=== PATIENT | female | born 1965 | race Two or more races ===

== ENCOUNTER 2018-07-11 23:38 | Emergency (ER) | payer BC, MEDICAID ==
[~2018-07-11] VITALS: Ht 154.9 cm; Wt 56.7 kg
--- NOTE | 2018-07-11 23:38 | NUR ---
"CHRONIC N/V/ABD PAIN WORSE TODAY" PT IS ALERT AND ORIENTED BUT BRAZILIAN SPEAKING. VSS NO ACUTE DISTRESS AT THIS TIME. SKIN IS WARM AND INTACT. BREATHING RATE WNL WITH ADEQUATE CHEST RISE/FALL. WILL CONTINUE TO MONITOR FOR ANY CHANGES DURING THE SHIFT.
--- NOTE | 2018-07-11 23:39 | NUR ---
ER MD VITALE AT BEDSIDE
--- NOTE | 2018-07-11 23:42 | NUR ---
CALLED; INFORMED "PT IN RESTROOM"
--- NOTE | 2018-07-11 23:45 | NUR ---
CALLED FOR TRIAGE; PT STILL IN RESTROOM
--- NOTE | 2018-07-12 00:20 | NUR ---
BLOOD TAKEN TO LAB BY MEDICAL TECHNOLOGIST CHIEF
[2018-07-12 00:26] LABS: BASOPHILS % (AUTO) 0.8 % (0.0-2.0); EOSINOPHILS % (AUTO) 1.2 % (0.0-6.0); HEMATOCRIT 42 % (33-45); HEMOGLOBIN 14.1 g/dL (11.5-14.8); LYMPHOCYTES # (AUTO) 1.5 /CMM (0.8-4.8); LYMPHOCYTES % (AUTO) 27.3 % (20.0-44.0); MEAN CORPUSCULAR HEMOGLOBIN 37 PG (26.0-33.0); MEAN CORPUSCULAR HGB CONC 33 g/dl (31.0-36.0); MEAN CORPUSCULAR VOLUME 112 fL (82-100); MONOCYTES # (AUTO) 0.6 /CMM (0.1-1.30); MONOCYTES % (AUTO) 10.9 % (2.0-12.0); NEUTROPHILS # (AUTO) 3.2 /CMM (1.8-8.9); NEUTROPHILS % (AUTO) 59.8 % (43.0-81.0); PLATELET COUNT (AUTO) 77 /CMM (150-450); RDW COEFFICIENT OF VARIATION 14.4 (11.5-15.0); RED BLOOD CELL COUNT(AUTO) 3.79 MIL/uL (4.0-5.2); WHITE BLOOD COUNT (AUTO) 5.4 K/uL (4.3-11.0)
--- NOTE | 2018-07-12 00:26 | NUR ---
MACHINE BUNCH MAKER AT BEDSIDE
[2018-07-12 00:41] LABS: CALCIUM, SERUM 8.7 mg/dL (8.5-10.1); CREATININE 0.7 mg/dL (0.6-1.3); POTASSIUM 4.2 mmol/L (3.5-5.1)
[2018-07-12 00:46] LABS: BILIRUBIN,DIRECT 2.9 mg/dL (0.0-0.2); BILIRUBIN,TOTAL 4.2 mg/dL (0.2-1.0); TOTAL PROTEIN, SERUM 7.2 g/dL (6.4-8.2)
[2018-07-12 01:08] LABS: EOSINOPHILS % (MANUAL) 1 % (0-4); LYMPHOCYTES % (MANUAL) 27 % (16-48); MONOCYTES % (MANUAL) 8 % (0-11.0); NEUTROPHILS % (MANUAL) 64 (42-76)
[2018-07-12 01:26] VITALS: BP 145/91
== END 2018-07-12 01:26 | disposition home or self-care (01) ==
LOC: ER 23:39
DX: R25.2 Cramp and spasm (principal); G89.29 Other chronic pain; R10.9 Unspecified abdominal pain; B19.20 Unspecified viral hepatitis C without hepatic coma; D69.6 Thrombocytopenia, unspecified
CPT/HCPCS: 36415; 71045; 73030; 80048; 80076; 85025; 99285; A4606; Z7610

== ENCOUNTER 2022-09-01 01:40 | Emergency (ER) | payer MEDICARE, BC ==
[~2022-09-01] VITALS: Ht 162.6 cm; Wt 63.5 kg
[2022-09-01] MEDS ORDERED: MORPHINE SULFATE INJ 2 MG/ML DISP.SYRIN IV ONE (02:30)
[2022-09-01] MEDS ORDERED: ONDANSETRON HCL/PF 4 MG/2 ML VIAL IVP ONE (02:30)
[2022-09-01] MEDS ORDERED: IV NS 0.9% 500 ML BAG IV ONE (02:30)
--- NOTE | 2022-09-01 02:30 | NUR ---
TO ER BED 17. BIBDAUGHTER C/O EPIGASTRIC 710 PAIN X1 DAY. +NAUSEA/BLOOD TINGED VOMIT. HX CIRRHOSIS. PT IS ALERT AND ORIENTED. RR EVEN AND NON LABORED. CONNECTED TO MONITOR
[2022-09-01] MEDS ORDERED: MORPHINE SULFATE INJ 2 MG/ML DISP.SYRIN ONE (02:32)
[2022-09-01] MEDS ORDERED: ONDANSETRON HCL/PF 4 MG/2 ML VIAL ONE (02:32)
--- NOTE | 2022-09-01 02:47 | NUR ---
IV LINE ESTABLISHED, LHAND 20G
[2022-09-01 02:48] LABS: BASOPHILS % (AUTO) 0.8 % (0.0-2.0); EOSINOPHILS % (AUTO) 1.3 % (0.0-6.0); HEMATOCRIT 41 % (33-45); HEMOGLOBIN 13.7 g/dL (11.5-14.8); LYMPHOCYTES # (AUTO) 1.1 K/uL (0.8-4.8); LYMPHOCYTES % (AUTO) 25.5 % (20.0-44.0); MEAN CORPUSCULAR HGB CONC 33 g/dl (31.0-36.0); MEAN CORPUSCULAR VOLUME 102 fL (82-100); MONOCYTES # (AUTO) 0.5 K/uL (0.1-1.30); MONOCYTES % (AUTO) 11.2 % (2.0-12.0); NEUTROPHILS # (AUTO) 2.6 K/uL (1.8-8.9); NEUTROPHILS % (AUTO) 61.2 % (43.0-81.0); PLATELET COUNT (AUTO) 57 K/uL (150-450); RED BLOOD CELL COUNT(AUTO) 4.01 MIL/uL (4.0-5.2); WHITE BLOOD COUNT (AUTO) 4.3 K/uL (4.3-11.0)
--- NOTE | 2022-09-01 02:48 | NUR ---
BLOOD COLLECTED AND SENT TO LAB
--- NOTE | 2022-09-01 02:50 | NUR ---
PT UNABLE TO PROVIDE URINE AT THIS TIME
[2022-09-01 02:56] LABS: CALCIUM, SERUM 8.7 mg/dL (8.5-10.1); CARBON DIOXIDE 27 mmol/L (21-32); CHLORIDE 107 mmol/L (98-107); CREATININE 0.7 mg/dL (0.6-1.3); GLUCOSE 110 mg/dL (74-106); SODIUM SERUM 139 mmol/L (136-145); UREA NITROGEN, BLOOD 17 mg/dL (7-18)
[2022-09-01 03:02] LABS: ALANINE AMINOTRANSFERASE 169 U/L (12-78); ALBUMIN 2.7 g/dL (3.4-5.0); ALKALINE PHOSPHATASE 92 U/L (46-116); ASPARTATE AMINOTRANSFERASE 152 U/L (15-37); BILIRUBIN,DIRECT 1.2 mg/dL (0.0-0.2); BILIRUBIN,TOTAL 2.2 mg/dL (0.2-1.0); LIPASE 121 U/L (73-393); TOTAL PROTEIN, SERUM 6.7 g/dL (6.4-8.2)
--- NOTE | 2022-09-01 03:25 | NUR ---
URINE COLLECTED AND SENT TO LAB
[2022-09-01 03:53] LABS: BILIRUBIN,URINE SMALL (NEGATIVE); COLOR,URINE DARK YELLOW (YELLOW); LEUKOCYTE ESTERASE ,URINE NEGATIVE (NEGATIVE); NITRITE, URINE POSITIVE (NEGATIVE); PH,URINE 5.5 (5.0-8.0); PROTEIN,URINE TRACE mg/dl (NEGATIVE); UGLUCOSE NEGATIVE (NEGATIVE)
--- NOTE | 2022-09-01 04:15 | NUR ---
IV removed. Catheter intact and site benign. Pressure and 4x4 applied to site. No bleeding noted.
--- NOTE | 2022-09-01 04:15 | NUR ---
Patient discharged to home in stable condition. Written and verbal after care instructions given. Patient verbalizes understanding of instruction.
[2022-09-01 04:46] VITALS: BP 122/75
[2022-09-01 07:52] LABS: BACTERIA,URINE Many /HPF (None Seen); CALCIUM OXALATE CRYSTALS,UR Moderate /HPF (None Seen); MUCUS,URINE Few /LPF (None Seen); SQUAMOUS EPITHELIAL CELL,UR Few /HPF (None Seen)
[2022-09-01 11:37] LABS: BAND % (MANUAL) 2 % (0.0-5.0); LYMPHOCYTES % (MANUAL) 24 % (16-48); MONOCYTES % (MANUAL) 8 % (0-11.0); NEUTROPHILS % (MANUAL) 66 (42-76)
== END 2022-09-01 04:25 | disposition home or self-care (01) ==
LOC: ER 01:40
DX: J90 Pleural effusion, not elsewhere classified (principal); K74.60 Unspecified cirrhosis of liver; B19.20 Unspecified viral hepatitis C without hepatic coma; I85.00 Esophageal varices without bleeding; K80.50 Calculus of bile duct without cholangitis or cholecystitis without obstruction
CPT/HCPCS: 99285; 74176; 96374; 71045; 96375; 93005; 85025; 80048; 83690; 80076; 81001; 36415; 84484; 85730; 85007; J2405; J7040; J2270; 87086-TC